=== PATIENT | female | born 1990 | race Caucasian/White ===

== ENCOUNTER → 2019-12-14 | Outpatient (CLI) | payer BC ==
--- NOTE | 2019-12-14 13:33 | KCIC ---
Bone densitometry 12/14/2019 1:04 PM Indication: Reason: 15 YRS ON DEPO SHOT, R/O OSTEOPOROSIS / Spl. Instructions: / History: Comparison Study: None. Discussion: Bone Densitometry was performed with dual photon absorption of the lumbar spine and proximal femur. Lumbar Spine: Bone average density is 0.924g/cm2 for L1-L4. T-Score is -1.1. Left femoral proximal femur: Bone average density is 0.972g/cm2. T-Score is 0.2. IMPRESSION: Decreased bone mineral density, lumbar spine in the osteopenic range. Note: Definitions established by the [employer] Organization: Normal: T-score is -1.0 or above. Osteopenia: T-score is between -1.0 and -2.5. Osteoporosis: T-score is -2.5 or below. Electronically signed by: Mahendra Bailon MD (12/14/2019 1:31 PM) [id number]
== END | disposition home or self-care (01) ==
LOC: KCIC DEXA 12:45
PROVIDERS: ATTEND Obstetrics & Gynecology
DX: M81.8 Other osteoporosis without current pathological fracture (principal); M85.88 Other specified disorders of bone density and structure, other site
CPT/HCPCS: 77080